=== PATIENT | male | born 1940 | race Caucasian/White ===

== ENCOUNTER → 2016-12-11 | Outpatient (CLI) | payer MEDICARE, OTHER ==
[~2016-12-11] MED LIST: AMOX875T2 PO; ASPI81TA82 PO; ATEN-100 PO; CENTTAB9 PO; CHOL1CAP2 PO; CIPR250T2 PO; LANTUS2P SC; OMEGCAP21 PO; PROP1TAB PO; ROSU10 PO; TRAM50 PO; VITA100018 PO; VITA100020 PO
[2016-12-11 13:13] LABS: HEMATOCRIT 40.8 % (39.0-51.0); MEAN CELL VOLUME 86.4 FL (80.0-100.0); MEAN CORPUSCULAR HEMOGLOBIN 29.3 PG (27.0-34.0); PLATELET COUNT 180 TH/MM3 (150-450); RED BLOOD COUNT 4.72 MIL/MM3 (4.50-5.90); RED CELL DISTRIBUTION WIDTH 12.6 % (11.6-17.2); REVIEW FLAG FINAL
[2016-12-11 13:39] LABS: ANION GAP 6 MEQ/L (5-15); AST (GOT) 18 U/L (15-37); BICARBONATE 26.4 MEQ/L (21.0-32.0); BLOOD UREA NITROGEN 28 MG/DL (7-18); CHLORIDE 110 MEQ/L (98-107); GLOMERULAR FILTRATION RATE 21 ML/MIN (>89); GLUCOSE,FASTING 57 MG/DL (74-99); POTASSIUM 4.2 MEQ/L (3.5-5.1); SODIUM (NA) 142 MEQ/L (136-145)
[2016-12-11 13:50] LABS: ALKALINE PHOSPHATASE 71 U/L (45-117); ALT (GPT) 29 U/L (12-78); HDL CHOLESTEROL 25.3 MG/DL (40.0-60.0); LDL CHOLESTEROL 26 MG/DL (0-99); TOTAL BILIRUBIN ADULT 0.6 MG/DL (0.2-1.0)
[2016-12-11 17:41] LABS: HEMOGLOBIN F 1.7 %; HEMOGLOBIN LA1C 2.2 %; HEMOGLOBIN P3 5.7 %
== END ==
LOC: PLAB 08:17
PROVIDERS: ATTEND Family Medicine
DX: Z00.01 Encounter for general adult medical examination with abnormal findings (principal); Z12.5 Encounter for screening for malignant neoplasm of prostate; E78.5 Hyperlipidemia, unspecified; I10 Essential (primary) hypertension; E11.9 Type 2 diabetes mellitus without complications
CPT/HCPCS: 36415; 80053; 80061; 82043; 83036; 84443; 85027; G0103

== ENCOUNTER → 2017-03-10 | Outpatient (CLI) | payer MEDICARE, OTHER ==
[2017-03-10 12:13] LABS: HEMATOCRIT 37.4 % (39.0-51.0); MEAN CELL VOLUME 84.8 FL (80.0-100.0); MEAN CORPUSCULAR HEMOGLOBIN 29.6 PG (27.0-34.0); MEAN CORPUSCULAR HGB CONC 34.9 % (32.0-36.0); PLATELET COUNT 163 TH/MM3 (150-450); RED BLOOD COUNT 4.41 MIL/MM3 (4.50-5.90); RED CELL DISTRIBUTION WIDTH 12.8 % (11.6-17.2); REVIEW FLAG FINAL; WHITE BLOOD COUNT 5.8 TH/MM3 (4.0-11.0)
[2017-03-10 13:03] LABS: ALKALINE PHOSPHATASE 67 U/L (45-117); ALT (GPT) 27 U/L (12-78); ANION GAP 7 MEQ/L (5-15); AST (GOT) 18 U/L (15-37); BICARBONATE 24.9 MEQ/L (21.0-32.0); BLOOD UREA NITROGEN 33 MG/DL (7-18); CHLORIDE 109 MEQ/L (98-107); GLOMERULAR FILTRATION RATE 22 ML/MIN (>89); GLUCOSE,FASTING 116 MG/DL (74-99); HDL CHOLESTEROL 22.3 MG/DL (40.0-60.0); LDL CHOLESTEROL 29 MG/DL (0-99); POTASSIUM 4.5 MEQ/L (3.5-5.1); SODIUM (NA) 141 MEQ/L (136-145); THYROXINE (T4) 8.1 MCG/DL (4.5-12.1); TOTAL BILIRUBIN ADULT 0.5 MG/DL (0.2-1.0)
[2017-03-10 17:15] LABS: HEMOGLOBIN A1a 0.9 %; HEMOGLOBIN Ao 79.2 %; HEMOGLOBIN F 1.4 %; HEMOGLOBIN LA1C 2.5 %; HEMOGLOBIN P3 5.3 %
== END ==
LOC: PLAB 08:55
PROVIDERS: ATTEND Family Medicine
DX: E78.5 Hyperlipidemia, unspecified (principal); E11.9 Type 2 diabetes mellitus without complications; E03.9 Hypothyroidism, unspecified
CPT/HCPCS: 36415; 80053; 80061; 83036; 84436; 84443; 84480; 85027

== ENCOUNTER → 2017-07-03 | Outpatient (CLI) | payer MEDICARE, OTHER ==
[2017-07-03 09:19] LABS: HEMATOCRIT 38.2 % (39.0-51.0); MEAN CELL VOLUME 87.7 FL (80.0-100.0); MEAN CORPUSCULAR HEMOGLOBIN 29.5 PG (27.0-34.0); MEAN CORPUSCULAR HGB CONC 33.7 % (32.0-36.0); PLATELET COUNT 167 TH/MM3 (150-450); RED BLOOD COUNT 4.36 MIL/MM3 (4.50-5.90); RED CELL DISTRIBUTION WIDTH 12.5 % (11.6-17.2); REVIEW FLAG FINAL; WHITE BLOOD COUNT 6.1 TH/MM3 (4.0-11.0)
[2017-07-03 09:37] LABS: ANION GAP 6 MEQ/L (5-15); AST (GOT) 18 U/L (15-37); BICARBONATE 23.8 MEQ/L (21.0-32.0); BLOOD UREA NITROGEN 40 MG/DL (7-18); CHLORIDE 108 MEQ/L (98-107); GLOMERULAR FILTRATION RATE 26 ML/MIN (>89); GLUCOSE,FASTING 83 MG/DL (74-99); SODIUM (NA) 138 MEQ/L (136-145)
[2017-07-03 09:39] LABS: ALT (GPT) 25 U/L (12-78)
[2017-07-03 09:51] LABS: ALKALINE PHOSPHATASE 60 U/L (45-117); HDL CHOLESTEROL 21.5 MG/DL (40.0-60.0); LDL CHOLESTEROL 31 MG/DL (0-99); THYROXINE (T4) 7.3 MCG/DL (4.5-12.1); TOTAL BILIRUBIN ADULT 0.5 MG/DL (0.2-1.0)
[2017-07-03 10:32] LABS: HEMOGLOBIN A1a 0.8 %; HEMOGLOBIN A1b 0.9 %; HEMOGLOBIN Ao 81.8 %; HEMOGLOBIN F 1.2 %; HEMOGLOBIN LA1C 2.2 %; HEMOGLOBIN P3 4.7 %
== END ==
LOC: PLAB 07:12
PROVIDERS: ATTEND Family Medicine
DX: E03.9 Hypothyroidism, unspecified (principal); E78.5 Hyperlipidemia, unspecified; I10 Essential (primary) hypertension; E11.9 Type 2 diabetes mellitus without complications
CPT/HCPCS: 36415; 80053; 80061; 83036; 84436; 84443; 84480; 85027

== ENCOUNTER → 2018-01-27 | Outpatient (CLI) | payer MEDICARE, OTHER ==
[2018-01-27 10:07] LABS: ALBUMIN 3.8 GM/DL (3.4-5.0); AST (GOT) 22 U/L (15-37); BICARBONATE 23.9 MEQ/L (21.0-32.0); BLOOD UREA NITROGEN 27 MG/DL (7-18); CALCIUM 8.4 MG/DL (8.5-10.1); CHLORIDE 112 MEQ/L (98-107); CHOLESTEROL 62 MG/DL (120-200); GLOMERULAR FILTRATION RATE 29 ML/MIN (>89); GLUCOSE,FASTING 84 MG/DL (74-99); SODIUM (NA) 143 MEQ/L (136-145); TRIGLYCERIDES 95 MG/DL (42-150)
[2018-01-27 10:15] LABS: ALKALINE PHOSPHATASE 63 U/L (45-117); ALT (GPT) 20 U/L (12-78); CHOLESTEROL/ HDL RATIO 2.87 RATIO; FREE T4 0.94 NG/DL (0.76-1.46); HDL CHOLESTEROL 21.6 MG/DL (40.0-60.0); LDL CHOLESTEROL 21 MG/DL (0-99); TOTAL BILIRUBIN ADULT 0.5 MG/DL (0.2-1.0); TOTAL PROTEIN 6.9 GM/DL (6.4-8.2)
[2018-01-27 15:57] LABS: HEMOGLOBIN A1C 7.9 % (4.3-6.0)
== END ==
LOC: PLAB 07:57
PROVIDERS: ATTEND Internal Medicine Endocrinology, Diabetes & Metabolism
DX: E11.9 Type 2 diabetes mellitus without complications (principal); I10 Essential (primary) hypertension; E78.5 Hyperlipidemia, unspecified; E03.9 Hypothyroidism, unspecified; E55.9 Vitamin D deficiency, unspecified
CPT/HCPCS: 36415; 80053; 80061; 82043; 82150; 82306; 83036; 83690; 84439; 84443